=== PATIENT | male | born 1995 | race African-American/Black ===

== ENCOUNTER → 2019-06-22 | Outpatient (CLI) | payer OTHER ==
[2019-06-22 14:04] LABS: BASOPHIL # 0.1 10^3/uL (0.0-0.1); BASOPHIL % 0.7 % (0.0-0.2); EOSINOPHIL % 0.4 % (0.0-5.0); HEMOGLOBIN 15.1 g/dL (13.9-16.3); LYMPHOCYTES # 2.4 10^3/uL (1.0-4.8); LYMPHOCYTES % 35.5 % (24.0-44.0); MEAN CELL HGB CONCENTRATION 34.9 g/dL (33-37); MEAN CORP VOLUME 86.1 fL (78-100); MEAN PLATELET VOLUME 9.6 fL (7.8-11.0); MONOCYTES # 0.7 10^3/uL (0.3-0.8); NEUTROPHIL # 3.6 10^3/uL (1.8-7.7); NEUTROPHILS % 53.4 % (41.0-85.0); RED CELL DISTRIBUTION WIDTH 12.5 % (11.5-14.5); WHITE BLOOD CELL 6.7 10^3/uL (4.5-11.0)
[2019-06-22 14:24] LABS: CALCIUM 9.3 mg/dL (8.4-10.5); CARBON DIOXIDE 25.2 mmol/L (20.0-32)
== END | disposition home or self-care (01) ==
LOC: LAB 13:28
PROVIDERS: ATTEND Nurse Practitioner Family
DX: R12 Heartburn (principal); R42 Dizziness and giddiness; Z20.2 Contact with and (suspected) exposure to infections with a predominantly sexual mode of transmission
CPT/HCPCS: 36415; 80053; 85025; 86592; 86677